=== PATIENT | female | born 1950 | race Caucasian/White ===

== ENCOUNTER 2019-02-04 07:43 | Inpatient (IN) ==
[2019-01-29 13:27] LABS: Appearance,Urine CLEAR; Bacteria,Urine 0 /hpf (0); Bilirubin,Urine NEG (NEG); Color,Urine YELLOW; Culture Indicated,Urine NO; Glucose,Urine (UA) NEGATIVE (NEG); Ketones,Urine NEG (NEG); Leukocyte Esterase,Urine 75 /uL (NEG); Mucus,Urine FEW /hpf (0); Nitrate,Urine NEG (NEG); Protein,Urine NEG (NEG); Specific Gravity,Urine 1.016 (1.000-1.035); Urine Blood 0.03 mg/dL (<0.03); Urine RBC 2 /hpf (0-1); Urine Squamous Epithelial Cell 0 /hpf (0-4); Urine Transitional Epi Cells < 1 /hpf (0-2); Urine WBC 2 /hpf (0-4); Urobilinogen,Urine NEG (NEG)
[2019-01-29 14:35] LABS: Basophils # (Auto) 0 K/mcL (0.0-0.3); Basophils % (Auto) 0.3 % (0.0-2.0); Eosinophils # (Auto) 0.3 K/mcL (0.0-0.7); Eosinophils % (Auto) 4.7 % (0.0-7.0); Granulocytes % (Auto) 47.1 % (38.0-78.0); Hematocrit 40.8 % (36.0-48.0); Hemoglobin 13.4 g/dL (12.0-15.0); Lymphocytes # (Auto) 2.5 K/mcL (1.5-4.8); Lymphocytes % (Auto) 33.5 % (15.5-49.0); Mean Cell Volume 95.6 fL (80.0-100.0); Mean Corpuscular HGB Conc 32.9 g/dL (31.0-36.0); Mean Platelet Volume 9.2 fL (7.4-10.4); Monocytes # (Auto) 1.1 K/mcL (0.1-0.9); Monocytes % (Auto) 14.4 % (1.0-12.0); Platelet Count 280 K/mcL (140-440); RBC 4.26 M/mcL (4.00-5.20); Red Cell Distribution Width 12.5 % (11.5-14.5); WBC 7.4 K/mcL (4.5-11.0)
[2019-01-29 14:41] LABS: Prothrombin Time 12.9 sec (11.9-14.5)
[2019-01-29 16:12] LABS: Blood Urea Nitrogen 11 mg/dl (8-23); Calcium 9.3 mg/dl (8.6-10.4); Carbon Dioxide 25 mmol/L (22-30); Chloride 104 mmol/L (96-108); Glomerular Filtration Rate 90; Glucose 84 mg/dL (70-105)
[~2019-02-04 07:43] MED LIST: ACETAMINOPHEN 500 MG TABLET PO SCH; CELECOXIB 200 MG CAPSULE PO SCH; ceFAZolin 2 GM in DEXTROSE 5% IN WATER 50 ML IV SCH; oxyCODONE 10 MG TAB.ER.12H PO SCH
[2019-02-04] MEDS ORDERED: SCOPOLAMINE 1 PATCH PATCH TOPICAL PRN (08:00)
[2019-02-04] MEDS ORDERED: IPRATROPIUM/ALBUTEROL 3 ML AMPUL.NEB NEB PRN ×2 (08:00→12:04)
[2019-02-04] MEDS ORDERED: GENTAMICIN SULFATE 800 MG/20 ML VIAL IR ONE (10:02)
[2019-02-04] MEDS ORDERED: KETAMINE 100 MG/ML ML IV ONE (10:50)
[2019-02-04] MEDS ORDERED: fentaNYL 100 MCG/2 ML VIAL IV ONE (10:50)
[2019-02-04] MEDS ORDERED: ONDANSETRON 4 MG/2 ML VIAL IV ONE (10:50)
[2019-02-04] MEDS ORDERED: GLYCOPYRROLATE 0.2 MG/ML VIAL IV ONE (10:50)
[2019-02-04] MEDS ORDERED: LIDOCAINE HCL/PF 100 MG/5 ML SYRINGE IV ONE (10:50)
[2019-02-04] MEDS ORDERED: TRANEXAMIC ACID 1,000 MG/10 ML VIAL IV ONE (10:50)
[2019-02-04] MEDS ORDERED: PROPOFOL 200 MG/20 ML VIAL IV ONE (10:50)
[2019-02-04] MEDS ORDERED: MIDAZOLAM 2 MG/2 ML VIAL IV ONE (10:50)
[2019-02-04] MEDS ORDERED: ROPIVACAINE HCL/PF 30 ML VIAL IJ ONE (10:50)
[2019-02-04] MEDS ORDERED: MEPERIDINE 25 MG/ML SYRINGE IV PRN (12:04)
[2019-02-04] MEDS ORDERED: fentaNYL 100 MCG/2 ML VIAL IV PRN (12:04)
[2019-02-04] MEDS ORDERED: BISACODYL 10 MG SUPP.RECT PR PRN (12:14)
[2019-02-04] MEDS ORDERED: KETOROLAC 15 MG/ML VIAL IV PRN (12:14)
[2019-02-04] MEDS ORDERED: TRANEXAMIC ACID 1,000 MG/10 ML VIAL IV SCH (12:14)
[2019-02-04] MEDS ORDERED: BENZOCAINE/MENTHOL 1 LOZENGE PO PRN (12:14)
[2019-02-04] MEDS ORDERED: MAGNESIUM HYDROXIDE 30 ML ORAL.SUSP PO PRN (12:14)
[2019-02-04] MEDS ORDERED: FLEETS ADULT ENEMA PR PRN (12:14)
[2019-02-04] MEDS ORDERED: POLYETHYLENE GLYCOL 3350 17 GM PACKET PO PRN (12:14)
[2019-02-04] MEDS ORDERED: ACETAMINOPHEN 325 MG TABLET PO PRN (12:14)
[2019-02-04] MEDS ORDERED: HYDROmorphone 2 MG/ML VIAL IV PRN (12:14)
[2019-02-04] MEDS ORDERED: oxyCODONE/APAP 5/325MG TABLET PO PRN (12:14)
--- NOTE | 2019-02-04 12:14 | Brief Operative Note ---
Date of procedure: 02/04/19 Pre-op diagnosis: Right shoulder rca Post-op diagnosis: same Procedure: Right shoulder djd and bicep tenodesis and reverse tsa Grafts/Implants: Yes Anesthesia: ZOLTAN Surgeon: Marcelo Myers Bog Cutter: Arik Crawford Estimated blood loss (cc): 100 Specimens Removed/Pathology: none sent Condition: stable Disposition: PACU
[2019-02-04] MEDS ORDERED: LACTATED RINGERS 1,000 ML IV SCH (12:15)
[2019-02-04] MEDS ORDERED: ALBUTEROL SULFATE 1 PUFF INHALER IH PRN (12:16)
[2019-02-04] MEDS ORDERED: LORATADINE 10 MG TABLET PO PRN (12:16)
[2019-02-04] MEDS ORDERED: methylPREDNISolone SOD SUCC 125 MG/2 ML VIAL IV SCH (12:30)
--- NOTE | 2019-02-04 12:54 | XRay Report ---
CLINICAL INFORMATION: Postsurgical follow-up TECHNIQUE: AP portable and transscapular Y view COMPARISON: None. FINDINGS: Status post right reverse shoulder arthroplasty. Alignment is anatomic. There is a right-sided chemotherapy infusion port identified. IMPRESSION: Status post right reverse shoulder arthroplasty Interpreted and Authenticated by: Jalen Barraza 02/04/19
[2019-02-04] MEDS: 0.45 % SODIUM CHLORIDE 1,000 ML IV SCH (13:36)
[2019-02-04] MEDS: 0.9 % SODIUM CHLORIDE 10 ML SYRINGE IV SCH ×2 (13:36→22:37)
[2019-02-04] MEDS: ONDANSETRON 4 MG/2 ML VIAL IV PRN ×3 (14:53→22:33)
[2019-02-04] MEDS: ceFAZolin 1 GM VIAL IV SCH (19:17)
[2019-02-04] MEDS ORDERED: SENNOSIDES 1 TABLET PO SCH (21:00)
[2019-02-04] MEDS ORDERED: BACLOFEN 10 MG TABLET PO SCH (21:00)
[2019-02-04] MEDS ORDERED: TEMAZEPAM 15 MG CAPSULE PO PRN (21:00)
[2019-02-04] MEDS ORDERED: clonazePAM 0.5 MG TABLET PO SCH (21:00)
[2019-02-04] MEDS: DOCUSATE SODIUM 100 MG CAPSULE PO SCH (22:35)
[2019-02-05] MEDS: 0.45 % SODIUM CHLORIDE 1,000 ML IV SCH ×2 (00:02→10:38)
[2019-02-05] MEDS: ceFAZolin 1 GM VIAL IV SCH (02:21)
[2019-02-05] MEDS: ONDANSETRON 4 MG/2 ML VIAL IV PRN ×3 (02:42→13:21)
[2019-02-05] MEDS: 0.9 % SODIUM CHLORIDE 10 ML SYRINGE IV SCH (05:01)
[2019-02-05] MEDS ORDERED: PROMETHAZINE 25 MG/ML VIAL IV PRN (07:18)
--- NOTE | 2019-02-05 07:34 | Orthopedic Progress Note ---
Subjective Patient information: Note initiated : 02/05/19 at 7:33 am Service Date, if different from initiated Date: [] Patient: Za Hagen 68 y/o F admitted on 02/04/19 for Right Reverse Total Shoulder Arthroplasty with. Chief Complaint: [Pt is stable this morning on post operative day 1 without any significant concerns or complaints. Patients vital signs have remained stable. Patients dressing is dry and is grossly intact from a neurovasc ular and motor standpoint. Patients 10 point ROS is otherwise negative. ] Objective Vital signs: Vital Signs Temp Pulse Resp BP Pulse Ox 02/05/19 02:46 98.4 F 90 16 122/73 97 02/04/19 23:53 98.2 F 78 16 129/78 98 02/04/19 19:00 97.8 F 76 16 133/79 96 02/04/19 15:23 79 20 126/75 92 02/04/19 14:33 76 141/77 92 02/04/19 14:03 81 145/76 92 02/04/19 13:48 79 138/80 90 02/04/19 13:32 80 141/84 91 02/04/19 13:18 82 16 137/82 89 L 02/04/19 13:02 97.3 F 85 16 145/91 92 02/04/19 12:56 97.9 F 88 16 138/77 97 02/04/19 12:41 97.5 F 88 14 133/78 98 02/04/19 12:36 85 13 83/38 100 02/04/19 12:31 88 22 116/73 100 02/04/19 12:26 97.1 F 88 13 105/59 98 02/04/19 08:00 97.7 F 83 18 144/85 98 Intake and Output 02/04/19 02/05/19 02/05/19 21:59 05:59 13:59 Intake Total 1500 Output Total 500 1000 Balance -500 500 Intake: IV 1000 Sodium Chloride 0.45% 1,000 ml 1000 @ 100 mls/hr IV .[facility] Rx#: [id number] Oral 500 Output: Void Amount 450 1000 Emesis 50 Other: Urine Appearance Clear Clear Urine Color Bright Yellow Bright Yellow Urine Odor Normal Weight 155 lb 8 oz Intake & Output: Intake & Output 02/04/19 02/05/19 02/05/19 21:59 05:59 13:59 Intake Total 1500 Output Total 500 1000 Balance -500 500 Weight 155 lb 8 oz Intake: IV 1000 Sodium Chloride 0.45% 1,000 ml 1000 @ 100 mls/hr IV .Q10H [facility] Rx#: [id number] Oral 500 Output: Void Amount 450 1000 Emesis 50 Other: Urine Appearance Clear Clear Urine Color Bright Yellow Bright Yellow Urine Odor Normal Incision: Yes healing Incision clean and dry: Yes Dressing: Yes clean Weight bearing status: full Neurological exam IM: Yes motor sensory intact, Yes neurovascular intact Extremities exam IM: Yes Foot pink and warm, Yes neurovascular intact - Labs CBC & BMP: 01/29/19 11:49 01/29/19 11:49 Labs: Orthopedic Labs 01/29/19 11:49 PT 12.9 INR 1.0 APTT 26 01/29/19 11:49 Hgb 13.4 Hct 40.8 Assessment and Plan (1) History of reverse total replacement of right shoulder joint The patient has been educated regarding dressing care, Physical Therapy recommendations, home exercises, restrictions, and follow up appointments. The patient has had all necessary DME prescribed. The patient has remained relatively stable during their hospital course. Leave Dermabond patch intact until followup Status: Acute
--- NOTE | 2019-02-05 07:37 | Discharge Summary ---
Ortho Discharge - TSA - Patient Instructions Diet: Regular Diet Activity: activity as tolerated, weight bearing as tolerated Total Shoulder Protocol: Leave immobilizer in place except for bathing and ROM. Abduction pillow. Continue to wear sling until seen by physician. Codman Pendulum : These exercises use momentum produced by your body to move your shoulder joint. Bend your knees and shift your weight to your front leg, then back, allowing your arm to swing in the same directions. Using the same technique, alternately shift your weight between your right and left legs, allowing your arm to swing from side to side. These exercises are also performed in counterclockwise and clockwise circular motions. Typically these exercises are performed several times per day, for a set number repetitions or minutes, such as 20 times in a row or 5 minutes at a time. Dressing Care: May shower in 2 days - Problem Maintenance (1) History of reverse total replacement of right shoulder joint Status: Acute - Follow Up Plan Follow Up Appointments: Arik Crawford PA-C [Physician Auto Body Repair Technician] - 02/19/19 1:00 pm Disposition: Home, Self-Care Prognosis: Good Rehab Potential: Good I certify that the patient requires SNF services: No Overall status at discharge: patient is progressing back to baseline - Orders For Discharge Prescriptions: Docusate Sodium [Colace] 100 mg PO BID #60 cap oxyCODONE/APAP [Percocet 5-325 mg] 1 - 2 tab PO Q4HP PRN #75 tab PRN Reason: Pain Level 3-6
[2019-02-05] MEDS ORDERED: CYANOCOBALAMIN (VITAMIN B-12) 500 MCG TABLET PO SCH (09:00)
[2019-02-05] MEDS ORDERED: GLATIRAMER ACETATE 20 MG/ML SUB-Q SCH (09:00)
[2019-02-05] MEDS ORDERED: MULTIVIT,THER IRON,CA,FA & MIN 1 TABLET PO SCH (09:00)
[2019-02-05] MEDS ORDERED: ASPIRIN 81 MG TAB.CHEW PO SCH (09:00)
--- NOTE | 2019-02-05 09:20 | Operative Note ---
DATE OF OPERATION: 02/04/2019 PREOPERATIVE DIAGNOSIS: A 68-year-old right rotator cuff arthropathy and severe arthritis, biceps tendinopathy. POSTOPERATIVE DIAGNOSIS: Right rotator cuff arthropathy and severe arthritis, biceps tendinopathy. PROCEDURE: Right reverse total shoulder with biceps tenodesis. SURGEON: Marcelo Myers MD INFORMATION TECHNOLOGY ACCOUNT MANAGER: Arik Crawford PA-C. This provider's expertise and technical skill were required throughout the case. The ANTONIO assisted with preoperative coordination, intraoperative retraction, wound closure, dressing and splint application, as well as postoperative documentation and care coordination. ANESTHESIA: General LMA anesthesia. COMPLICATIONS: None. DESCRIPTION OF PROCEDURE: The patient was brought to the operating room and put to sleep with general LMA anesthesia. Once asleep, the patient had the right arm confirmed as the operative site. Preop antibiotics and tranexamic acid was given. Once done, we then confirmed this operative site as the right and placed Ioban over the skin and made a deltopectoral approach. Retracting the deltoid laterally, we identified the subscap and the biceps tendon. The biceps tendon was repaired using a #2 Ethibond stitch to the pec major and into the bone. We made a bony cut at the surgical neck region and osteophytes were removed. A protective plate was placed on the humeral head. There was noted to be some fairly osteopenic bone at this point. The humeral head was retracted posteriorly with retractors. The capsule was released 360 degrees and removing the remnants of the biceps. Retractors were placed. We placed the pin centrally in the glenoid and this was reamed up to size for a 36 mm glenosphere. Once done, we then placed a central screw and 3 other screws measuring 36, 36 and 32 mm. These had good purchase. We then placed a [address]. We then prepared the humerus. This was broached up to the size and we placed the thickness of poly required to stabilize the shoulder. Once done, we placed a small amount of cement in the canal just to help support the stem as it grows, given the poor bone quality and then we decided on polyethylene because of the tension of the ligaments. This gave perfect stability. Shoulder had full range of motion. We then irrigated thoroughly, closed the deltopectoral interval with 2-0 Vicryl and closed the skin with 2-0 Vicryl and adhesive closure. The patient tolerated this well. The patient was fitted with a Donjoy sling and the patient tolerated this well. Blood loss was about 100 mL. RBH:stoney Job ID: [id number] Doc ID: [id number] Marcelo Myers MD
[2019-02-05] MEDS: DOCUSATE SODIUM 100 MG CAPSULE PO SCH (11:37)
[2019-02-06] MEDS ORDERED: PANTOPRAZOLE 40 MG TABLET PO SCH (07:30)
== END 2019-02-05 13:55 | disposition home or self-care (01) | DRG 483 ==
LOC: MEDSUR 07:43
PROVIDERS: ADMIT Orthopaedic Surgery; ATTEND Orthopaedic Surgery